=== PATIENT | male | born 1965 | race Caucasian/White ===

== ENCOUNTER → 2019-02-11 | Outpatient (CLI) | payer BC ==
[~2019-02-11] MED LIST: IBUP1TAB76 PO; MULT-658 PO
[2019-02-11 15:24] LABS: BASOPHILS # (AUTO) 0.05 x10^3/uL (0-0.1); BASOPHILS % (AUTO) 1 % (0-1); EOSINOPHILS # (AUTO) 0.25 x10^3/uL (0-0.4); EOSINOPHILS % (AUTO) 3 % (1-7); LYMPHOCYTES # (AUTO) 1.81 x10^3/uL (1-3.4); LYMPHOCYTES % (AUTO) 21 % (22-44); MD NO; MEAN CORPUSCULAR HEMOGLOBIN 29.6 pg (27.5-34.5); MEAN CORPUSCULAR HGB CONC 32.9 g/dL (33.2-36.2); MEAN CORPUSCULAR VOLUME 89.9 fL (81-97); MEAN PLATELET VOLUME 10.8 fL (7.4-10.4); MONOCYTES # (AUTO) 0.48 x10^3/uL (0.2-0.8); MONOCYTES % (AUTO) 6 % (2-9); NEUTROPHILS # (AUTO) 6.11 x10^3/uL (1.8-6.8); NEUTROPHILS % (AUTO) 70 % (42-75); PLATELET COUNT 233 x10^3/uL (130-400); RED BLOOD COUNT 5.47 x10^6/uL (4.38-5.82); RED CELL DISTRIBUTION WIDTH 14.2 % (9.4-14.8)
[2019-02-11 15:35] LABS: ANION GAP 5 mmol/L (5-15); CALCIUM 8.9 mg/dL (8.5-10.1); CHLORIDE 107 mmol/L (98-107); CREATININE 0.89 mg/dL (0.7-1.3)
[2019-02-11 15:37] LABS: INTERNATIONAL NORMALIZED RATIO 0.95 (0.93-1.1)
[2019-02-11 15:53] LABS: HEMOGLOBIN A1C 6.7 % (4.2-6.3)
== END | disposition home or self-care (01) ==
LOC: STAR 14:21
PROVIDERS: ATTEND Orthopaedic Surgery
DX: Z01.818 Encounter for other preprocedural examination (principal); M17.11 Unilateral primary osteoarthritis, right knee
CPT/HCPCS: 36415; 80048; 83036; 85025; 85610; 85730; 87081; 87806; 93005; G0475

== ENCOUNTER 2019-02-23 06:42 | Observation (INO) | payer BC ==
[~2019-02-23] VITALS: Ht 188 cm; Wt 125.0 kg
[2019-02-23] MEDS ORDERED: KETOROLAC 60 MG/2 ML ONE (07:00)
[2019-02-23] MEDS ORDERED: VANCOMYCIN 1,000 MG ONE (07:01)
[2019-02-23] MEDS ORDERED: ROPIvacaine/PF 0.2%, 20 ML ONE (07:01)
[2019-02-23] MEDS ORDERED: TRANEXAMIC ACID 100 MG/ML, 10ML ONE (07:01)
[2019-02-23] MEDS ORDERED: EPINEPHRINE 1 MG/ML, 1ML ONE (07:01)
[2019-02-23] MEDS ORDERED: SODIUM CHLORIDE 0.9% 50 ML ONE (07:01)
[2019-02-23] MEDS ORDERED: LACTATED RINGERS 1,000 ML IV SCH (07:20)
[2019-02-23] MEDS ORDERED: GABAPENTIN 300 MG CAPSULE PO ONE (07:30)
[2019-02-23] MEDS ORDERED: DIAZEPAM 5 MG TABLET PO ONE (07:30)
[2019-02-23] MEDS ORDERED: ACETAMINOPHEN 500 MG TABLET PO ONE (07:30)
[2019-02-23] MEDS ORDERED: LIDOCAINE-MPF 1%, 2ML INFIL ONE (07:30)
[2019-02-23] MEDS ORDERED: ONDANSETRON ODT 8 MG PO ONE (07:30)
[2019-02-23 07:46] VITALS: BP 147/95
[2019-02-23] MEDS ORDERED: PROPOFOL 50 ML ONE ×3 (08:40→10:31)
[2019-02-23] MEDS ORDERED: FENTANYL PF 250 MCG/5ML ONE (08:40)
[2019-02-23] MEDS ORDERED: MIDAZOLAM 1 MG/ML, 2ML ONE (08:40)
[2019-02-23] MEDS ORDERED: DEXAMETHASONE 4 MG/ML, 1ML ONE (09:49)
[2019-02-23] MEDS ORDERED: ONDANSETRON 2MG/ML, 2ML ONE (09:49)
[2019-02-23] MEDS ORDERED: PROPOFOL 10 MG/ML, 20ML ONE (09:49)
[2019-02-23] MEDS ORDERED: CEFAZOLIN 1,000 MG ONE ×3 (09:49)
[2019-02-23] MEDS ORDERED: DIPHENHYDRAMINE 50 MG/ML, 1ML IVPush PRN (10:00)
[2019-02-23] MEDS ORDERED: hydrALAzine 20 MG/ML, 1ML IV PRN (10:00)
[2019-02-23] MEDS ORDERED: EPHEDRINE 50 MG/ML, 1ML IM PRN (10:00)
[2019-02-23] MEDS ORDERED: OXYcodone 5 MG/5 ML ORAL.SOL UDC PO PRN (10:00)
[2019-02-23] MEDS ORDERED: PROMETHAZINE 25 MG/ML, 1ML IV PRN (10:00)
[2019-02-23] MEDS ORDERED: DIAZEPAM 5 MG/ML, 2ML IVPush PRN (10:00)
[2019-02-23] MEDS ORDERED: EPHEDRINE 50 MG/ML, 1ML IVPush PRN (10:00)
[2019-02-23] MEDS ORDERED: MIDAZOLAM 1 MG/ML, 2ML IV PRN (10:00)
[2019-02-23] MEDS ORDERED: METOPROLOL 1 MG/ML, 5ML IV PRN (10:00)
[2019-02-23] MEDS ORDERED: MEPERIDINE/PF 25MG/ML,1ML IVPush PRN (10:00)
[2019-02-23] MEDS ORDERED: ONDANSETRON 2MG/ML, 2ML IV PRN (10:00)
[2019-02-23] MEDS ORDERED: ONDANSETRON ODT 8 MG PO PRN (10:00)
[2019-02-23] MEDS ORDERED: METOCLOPRAMIDE 10MG TABLET PO PRN (11:30)
[2019-02-23] MEDS ORDERED: DIAZEPAM 5 MG TABLET PO PRN (11:30)
[2019-02-23] MEDS ORDERED: DIPHENHYDRAMINE 50 MG CAPSULE PO PRN (11:30)
[2019-02-23] MEDS ORDERED: MORPHINE SULFATE 4 MG/ML, 1ML IVPush PRN (11:30)
[2019-02-23] MEDS: SCOPOLAMINE PATCH, 1.5MG PATCH.TD72 TD SCH ×3 (11:30→19:35)
[2019-02-23] MEDS ORDERED: TRANEXAMIC ACID 1,000 MG in SODIUM CHLORIDE 0.9% 100 ML IVPB ONE (11:30)
[2019-02-23] MEDS ORDERED: HYDROcodone/APAP 5/325 TABLET PO PRN (11:30)
[2019-02-23] MEDS ORDERED: ZOLPIDEM 5MG TABLET PO PRN (11:30)
[2019-02-23] MEDS ORDERED: OXYcodone/APAP 5/325MG TABLET PO PRN (11:30)
[2019-02-23] MEDS ORDERED: OXYcodone 5 MG/5 ML ORAL.SOL UDC ONE (11:58)
[2019-02-23] MEDS ORDERED: FENTANYL PF 100 MCG/2ML ONE (11:58)
[2019-02-23] MEDS: FENTANYL PF 100 MCG/2ML IV PRN ×2 (12:05→12:11)
[2019-02-23] MEDS ORDERED: HYDROmorphone 1 MG/ML, 1ML INJ ONE (12:20)
[2019-02-23] MEDS: HYDROmorphone 2 MG/ML, 1ML IVPush PRN ×2 (12:27→12:38)
[2019-02-23] MEDS: ONDANSETRON 4 MG TABLET PO PRN ×3 (14:11→22:11)
[2019-02-23] MEDS: ACETAMINOPHEN 325 MG TABLET PO SCH ×3 (14:11→22:00)
[2019-02-23 14:19] VITALS: BP 143/86
[2019-02-23] MEDS: KETOROLAC 30 MG/1 ML IV SCH (16:36)
[2019-02-23] MEDS: CEFAZOLIN PMX 1GM/50ML 50 ML IVPB SCH (18:10)
[2019-02-23 19:49] VITALS: BP 116/76
[2019-02-23] MEDS: DOCUSATE 100 MG CAPSULE PO SCH (22:10)
[2019-02-23 23:46] VITALS: BP 102/67
[2019-02-24] MEDS: KETOROLAC 30 MG/1 ML IV SCH ×2 (00:18→07:52)
[2019-02-24] MEDS: ACETAMINOPHEN 325 MG TABLET PO SCH ×3 (02:46→10:47)
[2019-02-24] MEDS: CEFAZOLIN PMX 1GM/50ML 50 ML IVPB SCH (02:47)
[2019-02-24 03:38] VITALS: BP 109/63
[2019-02-24] MEDS ORDERED: DEXAMETHASONE 4 MG/ML, 1ML IVPush ONE (06:00)
[2019-02-24 07:41] VITALS: BP 136/78
[2019-02-24] MEDS ORDERED: KETOROLAC 30 MG/1 ML ONE (07:50)
[2019-02-24] MEDS: DOCUSATE 100 MG CAPSULE PO SCH (07:52)
[2019-02-24] MEDS ORDERED: ACET325T26 PO (08:32)
[2019-02-24] MEDS ORDERED: TRAM50TA2 PO (08:32)
[2019-02-24] MEDS ORDERED: ASPI81TA45 PO (08:32)
[2019-02-24 10:48] VITALS: BP 107/73
[2019-02-24] MEDS ORDERED: ASPIRIN 81 MG TABLET EC PO SCH (18:00)
== END 2019-02-24 11:21 | disposition home or self-care (01) ==
LOC: OR 06:42 → ORIP 11:11 → 4NE 13:12 → DCLOUNGE 02-24 11:11
PROVIDERS: ADMIT Orthopaedic Surgery; ATTEND Orthopaedic Surgery
DX: M17.11 Unilateral primary osteoarthritis, right knee (principal); I11.9 Hypertensive heart disease without heart failure; Z68.33 Body mass index [BMI] 33.0-33.9, adult; Z79.899 Other long term (current) drug therapy
CPT/HCPCS: 27447; 73560; 96365; 96366; 96375; 96376; 97161; G0378; J0171; J0690; J1100; J1170; J1885; J2250; J2405; J2704; J2795; J3010; J3370; J3490; J7120; Q0162; C1713; C1776

== ENCOUNTER 2019-03-03 14:20 | Emergency (ER) | payer BC ==
[~2019-03-03] VITALS: Ht 188 cm; Wt 122.5 kg
[~2019-03-03 14:20] MED LIST changes: +ACET325T26 PO; +ASPI81TA45 PO; +TRAM50TA2 PO
[2019-03-03 14:23] VITALS: BP 133/78
--- NOTE | 2019-03-03 15:28 | NUR ---
PT MOVED TO ROOM
--- NOTE | 2019-03-03 15:37 | NUR ---
PT HAD TOTAL KNEE REPLACEMENT ON 02/23. PRESENTING TO ED TODAY WITH RIGHT LEG SWELLING AND BRUISING. BELOW INCISION THERE IS A WARM RED AREA OF SKIN THAT HAS BEEN "GROWING AND IS PAINFUL TO THE TOUCH". PT STATED THAT HIS WOUND VAC RAN OUT OF BATTERY TODAY. POST OP APPT IS SATURDAY (03/06). CALL LIGHT WITHIN REACH.
[2019-03-03 15:47] LABS: BASOPHILS # (AUTO) 0.02 x10^3/uL (0-0.1); BASOPHILS % (AUTO) 0 % (0-1); EOSINOPHILS # (AUTO) 0.26 x10^3/uL (0-0.4); EOSINOPHILS % (AUTO) 2 % (1-7); LYMPHOCYTES # (AUTO) 1.58 x10^3/uL (1-3.4); LYMPHOCYTES % (AUTO) 14 % (22-44); MD NO; MEAN CORPUSCULAR HEMOGLOBIN 28.7 pg (27.5-34.5); MEAN CORPUSCULAR VOLUME 86.9 fL (81-97); MEAN PLATELET VOLUME 9.4 fL (7.4-10.4); MONOCYTES # (AUTO) 0.87 x10^3/uL (0.2-0.8); MONOCYTES % (AUTO) 8 % (2-9); NEUTROPHILS # (AUTO) 8.71 x10^3/uL (1.8-6.8); NEUTROPHILS % (AUTO) 76 % (42-75); PLATELET COUNT 366 x10^3/uL (130-400); RED CELL DISTRIBUTION WIDTH 13.9 % (9.4-14.8)
[2019-03-03 15:59] LABS: ALANINE AMINOTRANSFERASE 45 U/L (12-78); ALBUMIN 3.4 g/dL (3.4-5.0); ANION GAP 5 mmol/L (5-15); CALCIUM 9.3 mg/dL (8.5-10.1); CHLORIDE 104 mmol/L (98-107); CREATININE 0.97 mg/dL (0.7-1.3)
[2019-03-03 16:01] LABS: ALKALINE PHOSPHATASE 90 U/L (45-117); BILIRUBIN,TOTAL 2.1 mg/dL (0.2-1.0); TOTAL PROTEIN 7.8 g/dL (6.4-8.2)
--- NOTE | 2019-03-03 16:48 | NUR ---
PT RESTING IN HOSPITAL BED. AWAITING X RAY RESULTS.
== END 2019-03-03 17:35 | disposition home or self-care (01) ==
LOC: ED 17:29
DX: L03.031 Cellulitis of right toe (principal)
CPT/HCPCS: 36415; 80053; 85025; 99284